=== PATIENT | female | born 1965 | race African-American/Black ===

== ENCOUNTER 2023-01-26 14:22 | Outpatient (CLI) | payer OTHER | END 2023-01-26 14:23 | disposition home or self-care (01) | LOC: BICRAD 14:22 | PROVIDERS: ATTEND Internal Medicine Rheumatology | DX: M25.561 Pain in right knee (principal); M25.562 Pain in left knee; M54.50 Low back pain, unspecified; M47.816 Spondylosis without myelopathy or radiculopathy, lumbar region; M17.0 Bilateral primary osteoarthritis of knee | CPT/HCPCS: 72100; 73565 ==